=== PATIENT | female | born 1935 | race Caucasian/White ===

== ENCOUNTER 2020-12-03 16:24 | Observation (INO) | payer MEDICARE, BC, SELFPAY ==
[2020-12-03] VITALS (12 sets, daily range): BP systolic 98–118; BP diastolic 54–65; PULSE 56–76; RESP 16–23; TEMP 36.3–36.7; O2SAT 95–98; BMI 25.2; BMI 27.0
--- NOTE | 2020-12-03 16:33 | HMH.EDGENADL ---
ED Disposition Clinical Impression: UTI (urinary tract infection) Qualifiers: Urinary tract infection type: acute cystitis Hematuria presence: with hematuria Qualified Code(s): N30.01 - Acute cystitis with hematuria AMS (altered mental status) Qualifiers: Altered mental status type: delirium Qualified Code(s): R41.0 - Disorientation, unspecified Disposition: Admitted As Inpatient Condition on Discharge: Good Instructions: DI for Altered Mental Status Referrals: Daniel Larsen MD [Primary Care Provider] - - Critical Care Critical Care Time: No Attestation: On , the high probability of a clinically significant, sudden or life threatening deterioration of the following system(s) required my full and direct attention, intervention and personal management. The time I documented below is in addition to time spent performing reported procedures but includes the following listed in this critical care notation. Medical Decision Making - Medical Records Medical records reviewed: Yes: I reviewed the patient's medical records. - Star Inquiry Pt receiving controlled substance: No Vital Signs: 12/03/20 16:25 12/03/20 17:10 12/03/20 17:29 Temperature 97.3 F L Temperature Source Oral Pulse Rate 59 L 56 L Pulse Rate [Right] 65 Respiratory Rate 18 20 16 Blood Pressure 100/63 L 100/63 L Blood Pressure [Right Arm] 105/58 L Blood Pressure Mean [Right Arm] 73 Blood Pressure Source [Right Arm] Automatic Cuff Blood Pressure Position [Right Arm] Sitting 02 Sat by Pulse Oximetry 95 95 95 Oxygen Delivery Method Room Air 12/03/20 17:30 Temperature Temperature Source Pulse Rate 56 L Pulse Rate [Right] Respiratory Rate 19 Blood Pressure 98/60 L Blood Pressure [Right Arm] Blood Pressure Mean [Right Arm] Blood Pressure Source [Right Arm] Blood Pressure Position [Right Arm] 02 Sat by Pulse Oximetry 96 Oxygen Delivery Method - Lab Data Lab Results 12/03/20 16:25: WBC 5.7, RBC 4.54, Hgb 12.0 L, Hct 38.9, MCV 85.6, MCH 26.5 L, MCHC 31.0 L, RDW 17.5, Plt Count 259, MPV 8.8, Neut % (Auto) 55.1, Lymph % (Auto) 36.6, [place] % (Auto) 6.0, Eos % (Auto) 1.7, Baso % (Auto) 0.5, Neut # (Auto) 3.2, Lymph # (Auto) 2.1, [place] # (Auto) 0.3, Eos # (Auto) 0.1, Baso # (Auto) 0.0 12/03/20 16:25: Sodium 140, Potassium 4.0, Chloride 108 H, Carbon Dioxide 25, Anion Gap 11.0, BUN 24 H, Creatinine 0.60, Estimated Creat Clear 38, Estimated GFR 95, Est GFR ( Amer) 116, Glucose 116 H, Calcium 9.2, Total Bilirubin 1.8 H, AST 44 H, ALT 6 L, Alkaline Phosphatase 91, Total Protein 6.6, Albumin 3.9, Globulin 2.7, Albumin/Globulin Ratio 1.4 12/03/20 16:34: Urine Color Dk yellow, Urine Appearance Turbid, Urine pH 5.5, Ur Specific [place] >= 1.030, Urine Protein 1+, Urine Glucose (UA) Negative, Urine Ketones Trace, Urine Blood Trace-i, Urine Nitrate Negative, Urine Bilirubin 1+ A, Urine Urobilinogen 0.2, Ur Leukocyte Esterase 1+ A, Urine RBC Occasional, Urine WBC 3-5, Ur Squamous Epith Cells None, Amorphous Sediment Trace, Urine Bacteria 1+ Result diagrams: 12/03/20 16:25 12/03/20 16:25 Orders (Tests/Meds): ED MEDICATIONS Generic Name Dose Route Start Last Admin Trade Name Freq PRN Reason Stop Dose Admin Sodium Chloride 10 ml 12/03/20 19:01 Sodium Chloride 0.9% 10ml Vial IV 01/02/21 19:00 NEEDED PRN to Dilute Lorazepam inj Sodium Chloride 10 ml 12/03/20 19:01 Sodium Chloride 0.9% 10ml Vial IV 01/02/21 19:00 NEEDED PRN to Dilute Lorazepam inj Discontinued Medications Generic Name Dose Route Start Last Admin Trade Name Freq PRN Reason Stop Dose Admin Lorazepam 0.5 mg 12/03/20 19:01 12/03/20 16:30 Lorazepam 2mg/Ml Vial IV 12/03/20 19:02 0.5 mg ONCE ONE Administration Lorazepam 0.5 mg 12/03/20 19:01 12/03/20 16:40 Lorazepam 2mg/Ml Vial IV 12/03/20 19:02 0.5 mg ONCE ONE Administration ORDERS Category Date Time Status Urine Culture Stat Micro
--- NOTE | 2020-12-03 16:34 | CT_ITS ---
PROCEDURE INFORMATION: Exam: CT Head Without Contrast Exam date and time: 12/03/2020 4:34 PM Age: 85 years old Clinical indication: Altered mental status/memory loss; Additional info: AMS TECHNIQUE: Imaging protocol: Computed tomography of the head without contrast. 3D rendering (Not supervised by radiologist): MIP and/or 3D reconstructed images were created by the technologist. Radiation optimization: All CT scans at this facility use at least one of these dose optimization techniques: automated exposure control; mA and/or kV adjustment per patient size (includes targeted exams where dose is matched to clinical indication); or iterative reconstruction. COMPARISON: No relevant prior studies available. FINDINGS: Brain: There is no acute intracranial hemorrhage or mass effect. Mild to moderate diffuse volume loss is within the range of normal for patient age. There are small vessel ischemic changes within the periventricular and subcortical white matter, but the normal fitzpatrick/white matter delineation is maintained. Cerebral ventricles: No ventriculomegaly. Paranasal sinuses: Visualized sinuses are unremarkable. No fluid levels. Mastoid air cells: Visualized mastoid air cells are well aerated. Bones/joints: Unremarkable. No acute fracture. Soft tissues: Unremarkable. IMPRESSION: No acute hemorrhage or edema.
[2020-12-03 16:45] LABS: Basophils % 0.5 % (0.1-2.0); Eosinophils # 0.1 K/mm3 (0.0-0.4); Eosinophils % 1.7 % (0.1-12.0); Hematocrit 38.9 % (37.0-47.0); Lymphocytes # 2.1 K/mm3 (0.7-4.5); Lymphocytes % 36.6 % (10-50); Mean Corpuscular Hemoglobin 26.5 pg (27.0-31.2); Mean Corpuscular Volume 85.6 fl (81-99); Mean Platelet Volume 8.8 fl (7.4-10.4); Monocytes # 0.3 K/mm3 (0.1-1.0); Neutrophils # 3.2 K/mm3 (1.8-7.8); Neutrophils % 55.1 % (37.0-80.0); Platelet Count 259 K/mm3 (142-424); Red Blood Count 4.54 M/mm3 (4.20-5.40); Red Cell Distribution Width 17.5 % (11.5-17.5); White Blood Count 5.7 K/mm3 (4.8-10.8)
[2020-12-03 16:46] LABS: Chloride 108 mmol/L (98-107); Sodium 140 mmol/L (136-145)
[2020-12-03 16:49] LABS: Alanine Aminotransferase 6 U/L (12-78); Albumin Level 3.9 g/dl (3.5-5.0); Albumin/Globulin Ratio 1.4 (1.1-1.8); Alkaline Phosphatase 91 U/L (38-126); Aspartate Amino Transferase 44 U/L (14-36); Bilirubin,Total 1.8 mg/dl (0.2-1.3); Blood Urea Nitrogen 24 mg/dl (7-17); Calcium 9.2 mg/dl (8.4-10.2); Carbon Dioxide 25 mmol/L (22.0-30.0); Creatinine Clearance Estimated 38 mL/min (50-200); Estimated Glomerular Filt Rate 95 ml/min (>60); GFR (African American) 116 ML/MIN (>60); Globulin 2.7 g/dL (1.3-3.2); Glucose 116 mg/dl (74-100); Total Protein,Serum 6.6 g/dl (6.3-8.2)
[2020-12-03 18:30] LABS: Microscopic, Urine URINE MICROSCOPIC (MICROSCOPIC)
[2020-12-03 18:36] LABS: Appearance,Urine TURBID (Clear); Blood, Urine TRACE-I (Negative); Color,Urine DK YELLOW (Yellow); Glucose,Urine (UA) Negative (Negative); Ketones,Urine TRACE (Negative); Leukocyte Esterase,Urine 1+ (Negative); Nitrate,Urine Negative (Negative); PH,Urine 5.5 (5.0-8.5); Protein,Urine 1+ (Negative); Specific Gravity, Urine >= 1.030 (1.005-1.030); Urobilinogen,Urine 0.2 EU/dl (0.2)
[2020-12-03 18:55] LABS: Bilirubin,Urine 1+ (Negative); RBC,Urine Occasional #/hpf (0-3)
[2020-12-03 18:56] LABS: Amorphous Sediment,Urine Trace /lpf; Bacteria,Urine 1+ /lpf
[2020-12-03 19:21] LABS: Coronavirus 19, PCR Not Detected (NotDetected); Influenza A, PCR Not Detected (NotDetected); Influenza B, PCR Not Detected (NotDetected)
--- NOTE | 2020-12-03 20:32 | PC.NURSE ---
PT ARRIVED TO FLOOR VIA STRETCHER FROM ED W/STAFF AT 2032
[2020-12-04 04:00] VITALS: BP 97/50; PULSE 51; RESP 16; TEMP 36.4; O2SAT 99
[2020-12-04 05:13] VITALS: BMI 24.3
--- NOTE | 2020-12-04 07:55 | SW/DCPLANNER ---
Addendum entered by Eli Lucas 12/04/20 09:30: Per Renee no further COVID testing is needed if returning today. Addendum entered by Eli Lucas 12/04/20 09:27: The plan is for this patient to potentially discharge later today. Original Note: This patient currently resides at [facility]. I spoke with Renee from [facility] and she stated that patient is SNF level of care. I will continue to follow up with Renee during patients hospital admission. Discharge date is unknown at this time.
[2020-12-04 08:00] VITALS: BP 114/70; PULSE 65; RESP 17; TEMP 36.4; O2SAT 97; O2SAT 99
--- NOTE | 2020-12-04 08:34 | HMH.PHAINT ---
MEDICATION RECONCILIATION COMPLETE USING LIST FROM CORRECTION, EXTERNAL PHARMACY FILL HISTORY, AND MELODY REPORT.
--- NOTE | 2020-12-04 08:39 | HMH.PHAVTE ---
[facility] Pharmacy VTE Monitoring - Patient Demographics Admission date: 12/03/20 Report Date: 12/04/20 Time: 08:39 Allergies/Adverse Reactions: Patient Allergies Penicillins Allergy (Verified 12/03/20 16:26) morphine Adverse Reaction (Verified 12/03/20 16:26) Height: 1.5 m Weight: 54.839 kg Patient Problems: Current Active Problems UTI (urinary tract infection) (Acute) AMS (altered mental status) (Acute) - VTE Risk Labs: VTE Related Lab Results Hgb 12.0 g/dL (12.2-16.2) L 12/03/20 16:25 Hct 38.9 % (37.0-47.0) 12/03/20 16:25 Plt Count 259 K/mm3 (142-424) 12/03/20 16:25 BUN 24 mg/dl (7-17) H 12/03/20 16:25 Creatinine 0.60 mg/dl (0.52-1.04) 12/03/20 16:25 Estimated Creat Clear 38 mL/min (50-200) 12/03/20 16:25 Was VTE Risk Assessment Performed: No Clinical Trial Participant: No - Prophylaxis VTE Prophylaxis Ordered?: Yes Types of VTE Prophylaxis: TEDS Knee High Location of Applied Device: Bilateral Lower Extremeties Pharmacologic Type: Other (ALSO ON HOME ELIQUIS)
--- NOTE | 2020-12-04 12:42 | HMH.HPDC ---
General - General Admission date:: 12/03/20 Discharge date: 12/04/20 *Admission Date: 12/03/20 *Chief complaint: Altered Mental Status *History of present illness: 85-year-old female presents the ED today for altered mental status. 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 Bedside states that patient has not had any history of seizures to their knowledge, but states that he do not know if she is on any medication for this. Patient has been otherwise well recently. Patient is unable to provide full history secondary to her mental status [facility] History I have reviewed the patient's past medical history: Yes Medical History: Denies:: Cancer, Diabetes Mellitus Type 1, Diabetes Mellitus Type 2, MRSA *Have you ever received a pneumonia vaccine?: Yes *Have you received a flu vaccine this season?: Yes Other Medical History: Reports: Cataracts Other Surgeries: Yes: Colonoscopy, Colon Resection, Colostomy Amputation: No Fractures: No - *Social History Last grade of school completed: High school graduate Smoking Status: Current some day smoker Alcohol Intake: never *Occupational Status:: retired Housing: group home *Travel in the last 8 weeks: None Family Hx:: No significant family history Review of Systems - Review of Systems Review of systems:: pertinent systems reviewed and negative unless documented below - Constitutional Denies anorexia, Denies daytime sleepiness - Eyes Denies blind spots, Denies double vision - ENT Denies abnormal hearing, Denies dizziness - *Cardiovascular Denies chest pain, Denies shortness of breath with activity - *Respiratory Denies chest congestion, Denies cough - *Gastrointestinal Denies abdominal pain, Denies loose stools - *Musculoskeletal Denies decreased muscle mass, Denies numbness - Integumentary/Breasts Denies changing lesions, Denies yellowing of the skin - *Neurologic Denies abnormal movements, Denies headache(s) - Psychiatric Denies lack of enjoyment, Denies panic attacks - Endocrine Denies cold intolerance, Denies heat intolerance - Hematologic/Lymphatic Denies easy bleeding, Denies easy bruising - Allergic/Immunologic Denies GI upset with certain foods, Denies throat swelling Exam Vital signs and Labs for Last 24 Hours: Temp Pulse Resp BP Pulse Ox 97.6 F 65 17 114/70 97 12/04/20 08:00 12/04/20 08:00 12/04/20 08:00 12/04/20 08:00 12/04/20 08:00 Laboratory Results - last 24 hr 12/03/20 16:25: WBC 5.7, RBC 4.54, Hgb 12.0 L, Hct 38.9, MCV 85.6, MCH 26.5 L, MCHC 31.0 L, RDW 17.5, Plt Count 259, MPV 8.8, Neut % (Auto) 55.1, Lymph % (Auto) 36.6, [place] % (Auto) 6.0, Eos % (Auto) 1.7, Baso % (Auto) 0.5, Neut # (Auto) 3.2, Lymph # (Auto) 2.1, [place] # (Auto) 0.3, Eos # (Auto) 0.1, Baso # (Auto) 0.0 12/03/20 16:25: Sodium 140, Potassium 4.0, Chloride 108 H, Carbon Dioxide 25, Anion Gap 11.0, BUN 24 H, Creatinine 0.60, Estimated Creat Clear 38, Estimated GFR 95, Est GFR ( Amer) 116, Glucose 116 H, Calcium 9.2, Total Bilirubin 1.8 H, AST 44 H, ALT 6 L, Alkaline Phosphatase 91, Total Protein 6.6, Albumin 3.9, Globulin 2.7, Albumin/Globulin Ratio 1.4 12/03/20 16:34: Urine Color Dk yellow, Urine Appearance Turbid, Urine pH 5.5, Ur Specific [place] >= 1.030, Urine Protein 1+, Urine Glucose (UA) Negative, Urine Ketones Trace, Urine Blood Trace-i, Urine Nitrate Negative, Urine Bilirubin 1+ A, Urine Urobilinogen 0.2, Ur Leukocyte Esterase 1+ A, Urine RBC Occasional, Urine WBC 3-5, Ur Squamous Epith Cells None, Amorphous Sediment Trace, Urine Bacteria 1+ 12/03/20 19:13: SARS-CoV-2 (PCR) Not detected, Influenza A Untype (PCR) Not detected, Influenza Type B (PCR) Not detected I & O for
[2020-12-04 16:00] VITALS: BP 108/54; PULSE 51; RESP 20; TEMP 36.7; O2SAT 98
--- NOTE | 2020-12-04 18:24 | PC.NURSE ---
REPORT WAS CALLED TO [facility]. TRANSPORT TRUCK HAS NOT ARRIVED AT TIME OF WRITING. SHE IS AOX2, CAN ARIANNA STAFF HER NAME AND KNOWS SHE IS IN THE HOSPITAL, MILD TREMORS NOTED TO BUE. SHE HAS NOT C/O PAIN THIS SHIFT, NO SEIZURE ACTIVITY OR FOCAL DEFICITS NOTED. ABLE TO MOVE ALL EXTREMITIES. SHE DOES NOT REQUIRE O2 SUPPORT. LUNGS CTA, TURN IN BED INDEPENDENTLY. GOOD APPETITE NOTED. ASSIST FEED. COLOSTOMY BAG IN PLACE. VSS THIS SHIFT.
--- NOTE | 2020-12-04 19:44 | PC.NURSE ---
PT WAS D/C AT 1943
== END 2020-12-04 19:44 ==
LOC: ER 19:05 → 2ND 19:55
PROVIDERS: Admitting Provider Internal Medicine Adolescent Medicine; Emergency Provider Student in an Organized Health Care Education/Training Program; PCP Family Medicine; Visit Provider Family Medicine
DX: N39.0 Urinary tract infection, site not specified (principal); Z79.01 Long term (current) use of anticoagulants; G20 Parkinson's disease; G40.909 Epilepsy, unspecified, not intractable, without status epilepticus; Z79.899 Other long term (current) drug therapy; F17.210 Nicotine dependence, cigarettes, uncomplicated; Z20.822 Contact with and (suspected) exposure to COVID-19
CPT/HCPCS: G0378; 70450; 80053; 81001; 85025; 87086; 87088; 87186; 96365; 96375; 96376; 99284; C9803; J1335; J1953; U0003; U0005